=== PATIENT | female | born 1945 | race Caucasian/White ===

== ENCOUNTER → 2022-06-10 | Outpatient (CLI) | payer MEDICARE ==
[~2022-06-10] MED LIST: ADVIL 200MG TA200 MG PO; AVALIDE PO; CELEXA 20MG20 MG/TAB PO; IBU-TAB800 MG PO; LASIX 40MG TABL40 MG PO; LIPITOR 10MG10 MG PO; LISINOPRIL/HCTZ1 TAB PO; NEXIUM40 MG PO; NORCO 325 MG-7.1 TAB PO; PRILOSEC 20MG20 MG PO; SYNTHROID0.1 MG/TAB PO; ZOCOR40 MG PO; ZYLOPRIM 100MG100 MG PO
== END ==
LOC: COL.RAD 12:28
DX: R06.02 Shortness of breath (principal)